=== PATIENT | female | born 1975 | race Caucasian/White ===

== ENCOUNTER 2018-01-10 05:23 | Emergency (ER) | payer BC ==
[2018-01-10 05:37] VITALS: RESP 18
[2018-01-10] MEDS ORDERED: KETOROLAC 60 MG/2 ML VIAL IM STA (07:28)
[2018-01-10] MEDS ORDERED: HYDROcodone/APAP 5-325MG 1 EACH TAB PO STA (07:28)
[2018-01-10] MEDS ORDERED: DIAZEPAM 5 MG TAB PO STA (07:28)
--- NOTE | 2018-01-10 07:36 | CT ---
EXAMINATION TYPE: CT cervical spine wo con DATE OF EXAM: 01/10/2018 COMPARISON: None. HISTORY: Neck pain CT DLP: 336 mGycm Automated exposure control for dose reduction was used. TECHNIQUE: CT scan of the cervical spine is obtained without contrast, axial images are obtained, sa gittal and coronal reformatted images are also reviewed. FINDINGS: There are emphysematous changes within the lungs. There is a 5.3 mm calcified nodule within the left lobe of the thyroid. There is asymmetry in the oropharyngeal soft tissues as well as the oropharyngeal soft tissues with p rominence on the left. Vertebral body height and alignment are maintained. Atlantoaxial relationships are normal. No acute o sseous lesion is seen. There is no significant degenerative change. Intervertebral foramina appear we ll maintained. No definite protrusion is seen. IMPRESSION: ESSENTIALLY NORMAL CT SCAN OF THE CERVICAL SPINE. IF THE PATIENT'S CLINICAL SYMPTOMS PERSIST AN MRI O F THE SPINAL BE SUGGESTED.
--- NOTE | 2018-01-10 08:31 | ED ---
General Adult HPI - General Chief complaint: Neck Pain/Injury Stated complaint: Neck Pain Time Seen by Provider: 01/10/18 06:56 Source: patient, RN notes reviewed, old records reviewed Mode of arrival: ambulatory Limitations: no limitations - History of Present Illness Initial comments: This is a 42-year-old female the ER for evaluation of neck pain. Severe back pain 3 days. 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 No fevers no cough or congestion or recent change in medications. Patient states she was seen in urgent care 2 days ago but on baclofen and Motrin, she states symptoms of just been progressive and deathly worse when she wakes up. Mildly improved throughout the day. Again denies any fevers, mildly decreased range of motion, no significant active stretches or activity done. - Related Data Home Medications Medication Instructions Recorded Confirmed Loratadine [Claritin] 10 mg PO DAILY 10/13/13 02/28/14 Cranberry Conc/C/Bacill Coag 1 each PO DAILY 02/28/14 02/28/14 [Cranberry Tablet] Previous Rx's Medication Instructions Recorded Cyclobenzaprine [Flexeril] 10 mg PO TID PRN #15 tab 10/13/13 Famotidine [Pepcid] 20 mg PO BID #40 tablet 02/28/14 Naproxen Sodium [Anaprox Ds] 550 mg PO Q12HR #20 tab 02/28/14 Allergies Allergy/AdvReac Type Severity Reaction Status Date / Time Sulfa (Sulfonamide AdvReac Rash/Hives Verified 01/10/18 05:38 Antibiotics) Review of Systems ROS Statement: Those systems with pertinent positive or pertinent negative responses have been documented in the HPI. ROS Other: All systems not noted in ROS Statement are negative. Past Medical History Additional Past Medical History / Comment(s): influenza a, allergies History of Any Multi-Drug Resistant Organisms: None Reported Past Surgical History: Section Past Psychological History: No Psychological Hx Reported Smoking Status: Current some day smoker Past Alcohol Use History: Occasional Past Drug Use History: None Reported General Exam - General Exam Comments Initial Comments: Left-sided SCM torticollis, decreased range of motion active, no C-spine tenderness Limitations: no limitations General appearance: alert, in no apparent distress Head exam: Present: atraumatic, normocephalic, normal inspection Eye exam: Present: normal appearance, PERRL, EOMI. Absent: scleral icterus, conjunctival injection, periorbital swelling ENT exam: Present: normal exam, mucous membranes moist Neck exam: Present: normal inspection. Absent: tenderness, meningismus, lymphadenopathy Respiratory exam: Present: normal lung sounds bilaterally. Absent: respiratory distress, wheezes, rales, rhonchi, stridor Cardiovascular Exam: Present: regular rate, normal rhythm, normal heart sounds. Absent: systolic murmur, diastolic murmur, rubs, gallop, clicks GI/Abdominal exam: Present: soft, normal bowel sounds. Absent: distended, tenderness, guarding, rebound, rigid Extremities exam: Present: normal inspection, full ROM, normal capillary refill. Absent: tenderness, pedal edema, joint swelling, calf tenderness Back exam: Present: normal inspection Neurological exam: Present: alert, oriented X3, CN II-XII intact Psychiatric exam: Present: normal affect, normal mood Skin exam: Present: warm, dry, intact, normal color. Absent: rash Course Vital Signs 01/10/18 05:33 Temperature 98.5 F Pulse Rate 82 Respiratory 18 Rate Blood Pressure 155/94 O2 Sat by Pulse 98 Oximetry - Reevaluation(s) Reevaluation #1: 01/10/18 08:29 Patient's symptoms of neck pain and decreased range of motion of neck are completely resolved Reevaluation #2: 01/10/18 08:30 Patient is able to ambulate without difficulty, eating sandwiches and drinking Medical Decision Making - Medical Decision Making 42 female the ER with severe neck pain and neck cramping, torticollis, secondary to immobility of sleeping in chair. The currently improved and will be discharged home to continue medications prescribed by urgent care - Radiology Data Radiology results: report reviewed (CT C-spine is negative), image reviewed Disposition Clinical Impression: Strain of neck muscle, Torticollis Disposition: HOME SELF-CARE Condition: Good Instructions: Cervical Strain (ED) Is patient prescribed a controlled substance at d/c from ED?: No Referrals: Derik Khoury DO [Primary Care Provider] - 1-2 days
[2018-01-10 09:39] VITALS: BP 169/84; PULSE 63; TEMP 97
== END 2018-01-10 09:37 | disposition home or self-care (01) ==
LOC: EC 05:23
DX: S16.1XXA Strain of muscle, fascia and tendon at neck level, initial encounter (principal); M43.6 Torticollis; F17.200 Nicotine dependence, unspecified, uncomplicated; Z79.899 Other long term (current) drug therapy; Z88.2 Allergy status to sulfonamides
CPT/HCPCS: 72125; 99284; 96372; J1885

== ENCOUNTER → 2018-01-27 | Outpatient (CLI) | payer BC ==
--- NOTE | 2018-01-28 08:22 | US ---
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 GLAND SIZE: Right Lobe: 4.0 x 1.4 x 1.7 cm Overall Parenchyma: heterogenous Left Lobe: 3.8 x 1.3 x 1.5 cm Overall Parenchyma: heterogeneous Isthmus Thickness: 0.3 cm NODULES RIGHT: # of nodules measured on right: 0 LEFT: # of nodules measured on left: 2 1. 0.5 X 0.6 x 0.4 cm echogenic calcified nodule at the mid pole with well-defined margins; . This nodule is wider than tall and shows no intranodular vascularity. Prior size: No previous 2. 0.2 X 0.3 x 0.3 cm hypoechoic calcification nodule at the mid pole with well-defined margins; . This nodule is wider than tall and shows no intranodular vascularity. Prior size: No previous ISTHMUS: # of nodules measured in the isthmus: 0 Bilateral neck scanned, no evidence of lymphadenopathy. IMPRESSION: 1. Subcentimeter nodules within the left lobe thyroid.
== END | disposition home or self-care (01) ==
LOC: RADUSWWP 16:14
PROVIDERS: ATTEND Family Medicine
DX: E04.2 Nontoxic multinodular goiter (principal)
CPT/HCPCS: 76536

== ENCOUNTER 2018-07-08 22:09 | Emergency (ER) | payer BC ==
--- NOTE | 2018-07-09 00:39 | XR ---
EXAM: XR Chest, 2 Views CLINICAL HISTORY: : Chest Pain TECHNIQUE: Frontal and lateral views of the chest. COMPARISON: 02/28/14 FINDINGS: Lungs: Unremarkable. No consolidation. Pleural space: Unremarkable. No pneumothorax. Heart: Unremarkable. No cardiomegaly. Mediastinum: Unremarkable. Bones/joints: Unremarkable. IMPRESSION: Normal chest x-rays.
[2018-07-09 00:48] LABS: Basophils # (A) 0.1 k/uL (0-0.2); Basophils % (A) 1 %; Eosinophils # (A) 0.5 k/uL (0-0.7); Eosinophils % (A) 3 %; HCT 41.4 % (34.0-46.0); HGB 13.8 gm/dL (11.4-16.0); Lymphocytes # (A) 2.8 k/uL (1.0-4.8); Lymphocytes % (A) 16 %; MCH 27.5 pg (25.0-35.0); MCHC 33.2 g/dL (31.0-37.0); MCV 82.7 fL (80.0-100.0); Mean Platelet Volume 7.7; Monocytes # (A) 0.8 k/uL (0-1.0); Monocytes % (A) 5 %; Neutrophils # (A) 12.5 k/uL (1.3-7.7); Neutrophils % (A) 74 %; Platelet Count 264 k/uL (150-450); RBC 5.01 m/uL (3.80-5.40); RDW 13.8 % (11.5-15.5); WBC 16.9 k/uL (3.8-10.6)
--- NOTE | 2018-07-09 00:48 | ED ---
Chest Pain HPI - General Chief Complaint: Chest Pain Stated Complaint: Chest pain, arm pain Time Seen by Provider: 07/08/18 22:38 Source: patient Mode of arrival: ambulatory Limitations: no limitations - History of Present Illness Initial Comments: This patient is a 43-year-old woman who presents to be evaluated for chest pain. The patient states that it actually started yesterday. She describes having pains that are like an electric shock. She indicates that started on the left side of her chest and shooting across the right side. She became concerned when tonight she was having a feeling like her left arm was tight. She states the pain is moderately severe, it only comes on lasting a second or so and resolves. She has not noted worsening or relieving factors. There are no associated symptoms. MD Complaint: chest pain Onset/Timin -: days(s) Onset: during rest Pain Location: substernal Pain Radiation: LUE Severity: moderate Quality: other (Like a shock) Consistency: intermittent Improves With: nothing Worsens With: nothing Treatments Prior to Arrival: none - Related Data Home Medications Medication Instructions Recorded Confirmed Cranberry Conc/C/Bacill Coag 2 tab PO DAILY 02/28/14 07/08/18 [Cranberry Tablet] Atorvastatin [Lipitor] 10 mg PO DAILY 07/08/18 07/08/18 Cholecalciferol (Vitamin D3) 4,000 unit PO DAILY 07/08/18 07/08/18 [Vitamin D3] Allergies Allergy/AdvReac Type Severity Reaction Status Date / Time Sulfa (Sulfonamide Allergy Rash/Hives Verified 07/08/18 22:44 Antibiotics) Review of Systems ROS Statement: Those systems with pertinent positive or pertinent negative responses have been documented in the HPI. ROS Other: All systems not noted in ROS Statement are negative. Constitutional: Denies: fever, chills Respiratory: Reports: as per HPI. Denies: cough, dyspnea Cardiovascular: Reports: as per HPI, chest pain. Denies: palpitations, orthopnea, edema, syncope Gastrointestinal: Denies: abdominal pain, nausea, vomiting Genitourinary: Denies: dysuria, hematuria Musculoskeletal: Denies: back pain Skin: Denies: rash Neurological: Denies: headache, weakness, numbness EKG Findings - EKG Results: EKG: interpreted by NAZ, sinus rhythm (Rate 98 bpm), normal axis, normal QRS, normal ST/T, no acute changes Past Medical History Additional Past Medical History / Comment(s): influenza a, allergies History of Any Multi-Drug Resistant Organisms: None Reported Past Surgical History: Section Past Psychological History: No Psychological Hx Reported Smoking Status: Current some day smoker Past Alcohol Use History: Occasional Past Drug Use History: None Reported General Exam Limitations: no limitations General appearance: alert, in no apparent distress Head exam: Present: atraumatic, normocephalic Eye exam: Present: normal appearance. Absent: scleral icterus, conjunctival injection ENT exam: Present: normal oropharynx Respiratory exam: Present: normal lung sounds bilaterally. Absent: respiratory distress, wheezes, rales, rhonchi, stridor, chest wall tenderness Cardiovascular Exam: Present: regular rate, normal rhythm, normal heart sounds. Absent: systolic murmur, diastolic murmur, rubs, gallop GI/Abdominal exam: Present: soft. Absent: distended, tenderness, guarding, rebound, rigid, mass Extremities exam: Present: normal inspection, normal capillary refill. Absent: pedal edema, calf tenderness Back exam: Present: normal inspection. Absent: CVA tenderness (R), CVA tenderness (L) Neurological exam: Present: alert Skin exam: Present: warm, dry, intact, normal color. Absent: rash Course Vital Signs 07/08/18 07/09/18 22:27 01:00 Temperature 98.6 F Pulse Rate 98 82 Respiratory 18 16 Rate Blood Pressure 142/96 144/100 O2 Sat by Pulse 97 98 Oximetry Disposition Clinical Impression: Chest pain Disposition: HOME SELF-CARE Condition: Good Instructions (If sedation given, give patient instructions): Chest Pain (ED) Is patient prescribed a controlled substance at d/c from ED?: No Referrals: Derik Khoury DO [Primary Care Provider] - 1-2 days
[2018-07-09 00:58] LABS: ALT 28 U/L (9-52); AST 16 U/L (14-36); Albumin 4.2 g/dL (3.5-5.0); Alkaline Phosphatase 79 U/L (38-126); Amylase 47 U/L (30-110); Anion Gap 10 mmol/L; Blood Urea Nitrogen 10 mg/dL (7-17); Calcium 9.4 mg/dL (8.4-10.2); Carbon Dioxide 27 mmol/L (22-30); Chloride 105 mmol/L (98-107); Glucose 99 mg/dL (74-99); Lipase 64 U/L (23-300); Magnesium 1.6 mg/dL (1.6-2.3); Potassium 3.8 mmol/L (3.5-5.1); Sodium 142 mmol/L (137-145); Total Bilirubin 0.8 mg/dL (0.2-1.3); Total Protein 7.6 g/dL (6.3-8.2)
[2018-07-09 00:59] LABS: D-Dimer 0.49 mg/L FEU (<0.60); INR 0.9 (<1.2); Partial Thromboplastin Time 24.5 sec (22.0-30.0); Prothrombin Time 9.7 sec (9.0-12.0)
[2018-07-09 01:01] LABS: Creatine Kinase 51 U/L (30-135)
[2018-07-09 01:14] LABS: Creatine Kinase MB 0.5 ng/mL (0.0-2.4); Troponin I <0.012 ng/mL (0.000-0.034)
[2018-07-09 01:18] VITALS: BP 144/100; PULSE 82; RESP 16
[2018-07-09 01:45] VITALS: TEMP 98.2
== END 2018-07-09 01:48 | disposition home or self-care (01) ==
LOC: EC 22:09
DX: R07.2 Precordial pain (principal); M79.602 Pain in left arm; F17.200 Nicotine dependence, unspecified, uncomplicated; Z79.899 Other long term (current) drug therapy; Z88.2 Allergy status to sulfonamides
CPT/HCPCS: 36415; 71046; 80053; 82150; 82550; 82553; 83690; 83735; 84484; 85025; 85379; 85610; 85730; 93005; 99285

== ENCOUNTER → 2019-01-28 | Outpatient (CLI) | payer BC ==
--- NOTE | 2019-01-28 15:39 | US ---
EXAMINATION TYPE: US thyroid st tissue head/neck DATE OF EXAM: 01/28/2019 COMPARISON: US 01/27/18 CLINICAL HISTORY: E04.2 Thyroid Nodule. GLAND SIZE: Right Lobe: 4.3 x 1.6 x 1.5 cm Overall Parenchyma: homogenous Left Lobe: 4.1 x 1.7 x 1.6 cm Overall Parenchyma: homogeneous Isthmus Thickness: 0.5 cm NODULES RIGHT: # of nodules measured on right: 0 LEFT: # of nodules measured on left: 2 1. 0.6 X 0.6 x 0.5 cm echogenic solid, calcified nodule at the mid pole with well-defined margins; present with microcalcifications. This nodule is wider than tall and shows no intranodular vasculari ty. Prior size: 0.5 x 0.6 x 0.4 cm 2. 0.5 X 0.6 x 0.4 cm echogenic solid nodule at the mid pole with well-defined margins; present with microcalcifications. This nodule is wider than tall and shows intranodular vascularity. Prior size: 0.2 x 0.3 x 0.3 cm ISTHMUS: # of nodules measured in the isthmus: 0 Bilateral neck scanned, no evidence of lymphadenopathy. IMPRESSION: Left thyroid nodules are again seen, one of which is overall similar to the prior and one of which has minimally increased. These remain subcentimeter and too small for fine-needle aspiratio n. Continued surveillance with follow-up in 12 months is recommended.
== END | disposition home or self-care (01) ==
LOC: RADUSWWP 14:26
PROVIDERS: ATTEND Family Medicine
DX: E04.2 Nontoxic multinodular goiter (principal)
CPT/HCPCS: 76536

== ENCOUNTER → 2020-01-27 | Outpatient (CLI) | payer BC ==
--- NOTE | 2020-01-30 09:04 | US ---
EXAMINATION TYPE: US thyroid st tissue head/neck DATE OF EXAM: 01/27/2020 COMPARISON: 01/28/2019 CLINICAL HISTORY: 44-year-old female E04.1 Thyroid nodule. TECHNIQUE: Multiple sonographic images of the thyroid gland are obtained. FINDINGS: GLAND SIZE: Right Lobe: 4.4 x 1.4 x 1.5 cm Overall Parenchyma: homogenous Left Lobe: 4.6 x 1.5 x 1.5 cm Overall Parenchyma: homogeneous Isthmus Thickness: 0.3 cm NODULES RIGHT: # of nodules measured on right: 0 LEFT: # of nodules measured on left: 2 1. 0.5 X 0.4 x 0.4 cm hypoechoic solid, calcified nodule at the lower pole with well-defined margins; present with microcalcifications. This nodule is wider than tall and shows no intranodular vasculari ty. Prior size: 0.6 x 0.6 x 0.5 cm 2. 0.4 X 0.5 x 0.4 cm hypoechoic solid nodule at the upper pole with well-defined margins; present wi th microcalcifications. This nodule is wider than tall and shows no vascularity. Prior size: 0.5 x 0.6 x 0.5 cm ISTHMUS: # of nodules measured in the isthmus: 0 Bilateral neck scanned, no evidence of lymphadenopathy. IMPRESSION: 2 subcentimeter nodules on the left are stable to slightly smaller measuring up to 5 mm versus 6 mm, previously.
== END | disposition home or self-care (01) ==
LOC: RADUSWWP 16:16
PROVIDERS: ATTEND Family Medicine
DX: E04.1 Nontoxic single thyroid nodule (principal)
CPT/HCPCS: 76536

== ENCOUNTER 2020-05-26 08:23 | Emergency (ER) | payer BC ==
[2020-05-26 08:30] VITALS: BP 159/97; PULSE 91; RESP 18; TEMP 98.5
--- NOTE | 2020-05-26 08:45 | ED ---
Skin/Abscess/FB HPI - General Chief complaint: Skin/Abscess/Foreign Body Stated complaint: Poss Shingles Time Seen by Provider: 05/26/20 08:31 Source: patient, RN notes reviewed Mode of arrival: ambulatory Limitations: no limitations - History of Present Illness Initial comments: This a 45-year-old female presents emergency Department with chief complaint of rash. Patient states started 2 days ago. Patient has an area on her right side of her chest in the front and back. Patient states it is itchy, sort of stinging in nature. Patient has any fevers or chills. Patient has a history of chickenpox. Patient denies any history of shingles. Patient denies fevers or chills. Patient offers no other complaints. - Related Data Home Medications Medication Instructions Recorded Confirmed Cranberry Conc/C/Bacill Coag 2 tab PO DAILY 02/28/14 07/08/18 [Cranberry Tablet] Atorvastatin [Lipitor] 10 mg PO DAILY 07/08/18 07/08/18 Cholecalciferol (Vitamin D3) 4,000 unit PO DAILY 07/08/18 07/08/18 [Vitamin D3] Previous Rx's Medication Instructions Recorded valACYclovir HCL [Valtrex] 1,000 mg PO Q8HR #30 tab 05/26/20 Allergies Allergy/AdvReac Type Severity Reaction Status Date / Time Sulfa (Sulfonamide Allergy Rash/Hives Verified 05/26/20 08:24 Antibiotics) Review of Systems ROS Statement: Those systems with pertinent positive or pertinent negative responses have been documented in the HPI. ROS Other: All systems not noted in ROS Statement are negative. Past Medical History Additional Past Medical History / Comment(s): influenza a, allergies History of Any Multi-Drug Resistant Organisms: None Reported Past Surgical History: Section Past Psychological History: No Psychological Hx Reported Smoking Status: Current every day smoker Past Alcohol Use History: Occasional Past Drug Use History: None Reported General Exam Limitations: no limitations General appearance: alert, in no apparent distress Head exam: Present: atraumatic, normocephalic, normal inspection Eye exam: Present: normal appearance, PERRL, EOMI. Absent: scleral icterus, conjunctival injection, periorbital swelling Respiratory exam: Present: normal lung sounds bilaterally. Absent: respiratory distress, wheezes, rales, rhonchi, stridor Cardiovascular Exam: Present: regular rate, normal rhythm, normal heart sounds. Absent: systolic murmur, diastolic murmur, rubs, gallop, clicks Skin exam: Present: rash (Erythematous base rash with some vesicles noted on the forehead and posterior aspect of chest wall) Course Vital Signs 05/26/20 08:25 Temperature 98.5 F Pulse Rate 91 Respiratory 18 Rate Blood Pressure 159/97 O2 Sat by Pulse 98 Oximetry Medical Decision Making - Medical Decision Making Area of rash is concerning for shingles. Patient was started on Valtrex. Patient is instructed take Tylenol Motrin return for any worsening changing symptoms. Disposition Clinical Impression: Herpes zoster Disposition: HOME SELF-CARE Condition: Stable Instructions (If sedation given, give patient instructions): Shingles (ED) Additional Instructions: Please return to the Emergency Department if symptoms worsen or any other concerns. Prescriptions: valACYclovir HCL [Valtrex] 1,000 mg PO Q8HR #30 tab Is patient prescribed a controlled substance at d/c from ED?: No Referrals: Derik Khoury DO [Primary Care Provider] - 1-2 days Time of Disposition: 08:45
[2020-05-26] MEDS: valACYclovir HCL 1,000 MG TABLET PO STA (09:02)
== END 2020-05-26 09:04 | disposition home or self-care (01) ==
LOC: EC 08:23
DX: B02.9 Zoster without complications (principal); F17.200 Nicotine dependence, unspecified, uncomplicated; Z88.2 Allergy status to sulfonamides
CPT/HCPCS: 99282

== ENCOUNTER 2020-11-17 12:25 | Emergency (ER) | payer BC ==
[2020-11-17 12:36] VITALS: RESP 18
[2020-11-17] MEDS ORDERED: ACYCLOVIR 800 MG TAB PO STA (12:51)
--- NOTE | 2020-11-17 12:54 | ED ---
General Adult HPI - General Chief complaint: Skin/Abscess/Foreign Body Stated complaint: Skin Irritation Time Seen by Provider: 11/17/20 12:39 Source: patient Mode of arrival: ambulatory Limitations: no limitations - History of Present Illness Initial comments: Dictation was produced using [employer] dictation software. please excuse any grammatical, word or spelling errors. Chief Complaint: 45-year-old female presents with axillary rash History of Present Illness: 45-year-old female she is had multiple episodes of shingles in the last several years. She states that she developed a rash on her right posterior axilla couple days ago. She states that it's pruritic. It's slightly painful especially when her skin rubs against it. She has not been exposed to any poison navneet or poison oak. The ROS documented in this emergency department record has been reviewed and confirmed by me. Those systems with pertinent positive or negative responses have been documented in the HPI. All other systems are other negative and/or noncontributory. PHYSICAL EXAM: General Impression: Alert and oriented x3, not in acute distress HEENT: Normocephalic atraumatic, extra-ocular movements intact, pupils equal and reactive to light bilaterally, mucous membranes moist. Cardiovascular: Heart regular rate and rhythm Chest: Able to complete full sentences, no retractions, no tachypnea Abdomen: abdomen soft, non-tender, non-distended, no organomegaly Musculoskeletal: Pulses present and equal in all extremities, no peripheral edema Motor: no focal deficits noted Neurological: CN II-XII grossly intact, no focal motor or sensory deficits noted Skin: 2 x 2 centimeter rash over the posterior axilla with dew on a syed petal or icterus sick Psych: Normal affect and mood ED course: 75-year-old female presents with clinical presentation consistent with shingles. She was appears to be on the T1 or T2 dermatome. On arrival are within acceptable limits. No other rashes noted on her skin. Patient given prescription for antivirals. Advised follow-up with primary care physician. - Related Data Home Medications Medication Instructions Recorded Confirmed Cranberry Conc/C/Bacill Coag 2 tab PO DAILY 02/28/14 05/26/20 [Cranberry Tablet] Atorvastatin [Lipitor] 10 mg PO DAILY 07/08/18 05/26/20 Cholecalciferol (Vitamin D3) 2,000 unit PO DAILY 07/08/18 05/26/20 [Vitamin D3] Lysine HCl [l-Lysine] 1,000 mg PO DAILY 05/26/20 05/26/20 Previous Rx's Medication Instructions Recorded valACYclovir HCL [Valtrex] 1,000 mg PO Q8HR #30 tab 05/26/20 Acyclovir 800 mg PO 5XD 7 Days #35 tablet 11/17/20 Allergies Allergy/AdvReac Type Severity Reaction Status Date / Time Sulfa (Sulfonamide Allergy Rash/Hives Verified 11/17/20 12:36 Antibiotics) Review of Systems ROS Statement: Those systems with pertinent positive or pertinent negative responses have been documented in the HPI. ROS Other: All systems not noted in ROS Statement are negative. Past Medical History Additional Past Medical History / Comment(s): influenza a, allergies History of Any Multi-Drug Resistant Organisms: None Reported Past Surgical History: Section Past Psychological History: No Psychological Hx Reported Smoking Status: Current some day smoker Past Alcohol Use History: Occasional Past Drug Use History: None Reported General Exam Limitations: no limitations Course Vital Signs 11/17/20 12:31 Temperature 98.4 F Pulse Rate 88 Respiratory 18 Rate Blood Pressure 160/102 O2 Sat by Pulse 97 Oximetry Disposition Clinical Impression: Shingles Disposition: HOME SELF-CARE Condition: Good Instructions (If sedation given, give patient instructions): David (ED) Prescriptions: Acyclovir 800 mg PO 5XD 7 Days #35 tablet Is patient prescribed a controlled substance at d/c from ED?: No Referrals: Derik Khoury DO [Primary Care Provider] - 1-2 days
[2020-11-17 13:14] VITALS: BP 137/77; PULSE 99; TEMP 98
== END 2020-11-17 13:14 | disposition home or self-care (01) ==
LOC: EC 12:25
DX: B02.9 Zoster without complications (principal); F17.200 Nicotine dependence, unspecified, uncomplicated; Z79.899 Other long term (current) drug therapy; Z88.2 Allergy status to sulfonamides
CPT/HCPCS: 99282

== ENCOUNTER → 2021-03-25 | Outpatient (CLI) | payer BC ==
--- NOTE | 2021-03-26 09:53 | US ---
EXAMINATION TYPE: US thyroid st tissue head/neck DATE OF EXAM: 03/25/2021 COMPARISON: NONE CLINICAL HISTORY: E4.1 Nontoxic single thyroid nodule. f/u scan GLAND SIZE: Right Lobe: 4.5 x 1.3 x 1.9 cm Overall Parenchyma: homogenous Left Lobe: 4.0 x 1.5 x 1.6 cm Overall Parenchyma: homogeneous Isthmus Thickness: 0.2 cm NODULES RIGHT: # of nodules measured on right: 0 LEFT: # of nodules measured on left: 1 1. 0.4 X 0.4 x 0.4 cm, mid, calcified nodule with smooth margins, without echogenic foci. Prior size: 0.4 x 0.4 x 0.4 cm ISTHMUS: # of nodules measured in the isthmus: 0 Bilateral neck scanned, no evidence of lymphadenopathy. IMPRESSION: 4 mm calcified nodule mid pole left lobe thyroid shows a stable appearance
== END | disposition home or self-care (01) ==
LOC: RADUSWWP 14:15
PROVIDERS: ATTEND Family Medicine
DX: E04.1 Nontoxic single thyroid nodule (principal)
CPT/HCPCS: 76536

== ENCOUNTER → 2022-03-25 | Outpatient (CLI) | payer BC ==
--- NOTE | 2022-03-25 13:02 | US ---
EXAMINATION TYPE: US thyroid st tissue head/neck DATE OF EXAM: 03/25/2022 COMPARISON: US CLINICAL HISTORY: E04.1 nontoxic single thyroid nodule. Nodule. GLAND SIZE: Right Lobe: 4.8 x 1.6 x 1.7 cm Overall Parenchyma: homogenous Left Lobe: 4.3 x 1.7 x 1.4 cm Overall Parenchyma: homogeneous Isthmus Thickness: 0.3 cm NODULES RIGHT: # of nodules measured on right: 0 LEFT: # of nodules measured on left: 2 1. 0.4 X 0.5 x 0.4 cm, mid calcified nodule, which is wider than tall, with smooth margins, without echogenic foci. Prior size: 0.4 x 0.4 x 0.4 cm 2. 0.6 X 0.5 x 0.5 cm, mid medial, calcified nodule, which is as wide as it is tall, with smooth m argins, without echogenic foci. Prior size: Does not correlate ISTHMUS: # of nodules measured in the isthmus: 0 Bilateral neck scanned, Hypoechoic areas with hyperechoic centers seen within the neck. Largest on the right measures 1.4 x 1.1 x 0.8 cm. Largest on the left measures 2.1 x 1.4 x 0.5 cm. IMPRESSION: No suspicious nodules.
== END | disposition home or self-care (01) ==
LOC: RADUSWWP 09:36
PROVIDERS: ATTEND Family Medicine
DX: E04.1 Nontoxic single thyroid nodule (principal)
CPT/HCPCS: 76536

== ENCOUNTER → 2023-08-07 | Day surgery (SDC) | payer BC ==
[2023-08-05 14:35] VITALS: BMI 27.9
[~2023-08-07] MED LIST: PROPOFOL 10 MG/ML 20 ML VIAL IV ONE
[2023-08-07] MEDS: LACTATED RINGERS 1,000 ML IV SCH (08:06)
[2023-08-07 08:35] VITALS: TEMP 98
--- NOTE | 2023-08-07 08:43 | P.PCN ---
Date of Procedure: 08/07/23 Procedure(s) Performed: BRIEF HISTORY: Patient is a 48-year-old pleasant white female scheduled for an elective colonoscopy as a part of screening for colon cancer. PROCEDURE PERFORMED: Colonoscopy with biopsy. PREOPERATIVE DIAGNOSIS: Screening for colon cancer. IV sedation per Anesthesia. PROCEDURE: After informed consent was obtained, the patient, was brought into the endoscopy unit. IV sedation was administered by Anesthesia under continuous monitoring. Digital rectal examination was normal. Initially the Olympus CF-160 flexible video colonoscope was then inserted in the rectum, gradually advanced into the cecum without any difficulty. Careful examination was performed as the scope was gradually being withdrawn. Ileocecal valve and the appendiceal orifice were visualized and appeared normal. Prep was excellent. There was a 3 mm polyp in the ileocecal valve that was removed by cold biopsy. Mucosa of the cecum, ascending colon, transverse colon, descending colon, sigmoid colon, and rectum appeared normal. Retroflexion was performed in the rectum and no lesions were seen. The patient tolerated the procedure well. IMPRESSION: 3 mm polyp on the ileocecal valve status post cold biopsy Rest of the colon appeared normal RECOMMENDATIONS: Findings of this examination were discussed with the patient as well as a family. She was advised to follow with the biopsy results and have a repeat screening colonoscopy in 5-10 years..
[2023-08-07 09:11] VITALS: BP 132/88; PULSE 81; RESP 16
== END ==
LOC: ORWHC2ENDO 07:58
PROVIDERS: ATTEND Internal Medicine Gastroenterology
DX: Z12.11 Encounter for screening for malignant neoplasm of colon (principal); K63.5 Polyp of colon; E78.5 Hyperlipidemia, unspecified; F17.200 Nicotine dependence, unspecified, uncomplicated; Z79.899 Other long term (current) drug therapy; Z88.2 Allergy status to sulfonamides; Z98.891 History of uterine scar from previous surgery
CPT/HCPCS: 81025; 88305; 45380; J2704